=== PATIENT | male | born 1955 | race Caucasian/White ===

== ENCOUNTER → 2018-05-24 | Outpatient (CLI) | payer OTHER, SELFPAY ==
--- NOTE | 2018-05-24 06:42 | MRI_ITS ---
STUDY: MRI LUMBAR SPINE WITHOUT CONTRAST REASON FOR EXAM: Male, 62 years old. Low back pain radiating to the left hip for 3 weeks TECHNIQUE: Standardized fat and water weighted pulse sequences were obtained in the sagittal and axial planes. COMPARISON: None FINDINGS: T12-L1: Incompletely imaged bulging annulus. Grade 1 L4-5 anterolisthesis. There is no substantial scoliosis. Normal conus medullaris that terminates at the T12 level. Multiple Schmorl's nodes. L1-2: Bulging annulus with mild central canal and bilateral foraminal stenoses. L2-3: Bulging annulus with mild central canal stenosis. L3-4: Bulging annulus and bilateral facet hypertrophy with mild bilateral foraminal stenoses. L4-5: Bulging annulus and bilateral facet hypertrophy. Moderate bilateral foraminal stenoses. L5-S1: Bulging annulus, broad central disc protrusion, and bilateral facet hypertrophy with mild left foraminal stenosis. Normal visualized sacral ala. Normal visualized paraspinous soft tissue structures. MRI/Spine Lumbar (Routine) IMPRESSION: Grade 1 L4-5 anterolisthesis. Multilevel degenerative disease as described. Moderate bilateral foraminal stenoses at L4-5. Electronically Signed: Carlos Seals MD at 8:39 EDT Tel , Service support ,
== END | disposition home or self-care (01) ==
PROVIDERS: Family Provider Family Medicine; PCP Family Medicine
DX: M54.16 Radiculopathy, lumbar region (principal); M43.16 Spondylolisthesis, lumbar region
CPT/HCPCS: 72148

== ENCOUNTER → 2020-04-05 09:24 | Outpatient (CLI) | payer OTHER, SELFPAY ==
[2020-04-05 12:49] LABS: Absolute Lymphocyte Count 0.99 X10^3/uL (0.83-4.51); Absolute Neutrophil Count 2.7 X10^3/uL (2.0-7.7); Basophil# 0.05 X10^3/uL; Basophil% 1.1 % (0-1); Eosinophil# 0.38 X10^3/uL; Eosinophils% 8.5 % (0-5); Hematocrit 43.8 % (40-54); Hemoglobin 14.8 g/dL (13.0-16.5); Lymphocyte # 0.99 X10^3/ul (4.0); Mean Corp Hgb Conc 33.8 g/dL (32-36); Mean Corpuscular Hgb 30.9 pg (27.0-32.0); Mean Corpuscular Volume 91.4 fL (80-94); Mean Platelet Vol. 9.7 fl (6.2-12.0); Monocyte# 0.36 X10^3/uL; NRBC Flagged by Analyzer 0 % (0-5); Neutrophil # 2.69 X10^3/uL (2.7-7.7); Platelet Count 212 K/mm3 (150-450); RBC Distribution Width CV 11.9 % (11.6-14.6); RBC Distribution Width SD 40.6 fl (35.1-43.9); Red Blood Count 4.79 M/mm3 (4.6-6.2); White Blood Count 4.5 K/mm3 (4.4-11.0)
[2020-04-05 13:41] LABS: ALB/GLOB Ratio 0.9 RATIO (0.9-2.4); AST(SGOT) 17 U/L (15-37); Alanine Aminotransfer ALT/SGPT 38 U/L (16-61); Albumin, Serum 3.7 g/dL (3.2-5.0); Alkaline Phosphatase 72 U/L (45-117); Anion Gap 8 (5-15); BUN 11 mg/dL (7-18); BUN/Creat Ratio 15.3 RATIO (10-20); Calcium,Total 8.7 mg/dL (8.5-10.1); Chloride 105 mmol/L (98-107); Cholesterol 242 mg/dL (200); Creatinine, Serum 0.72 mg/dL (0.70-1.30); EST Glomerular Filtration Rate 116 mL/min (>60); Est Glom Filt Rate - Afr Amer 141 mL/min (>60); Globulin 3.9 g/dL (2.2-4.2); Glucose 87 mg/dL (74-106); High Density Lipoprotein 66 mg/dL; Potassium 3.6 mmol/L (3.5-5.1); Protein, Total 7.6 g/dL (6.4-8.2); Sodium Level 139 mmol/L (136-145); Thyroid Stim Hormone (TSH) 1.74 uIU/mL (0.358-3.74); Triglycerides 60 mg/dL; Very Low Density Lipoprotein 12 mg/dL (5-40)
== END ==
PROVIDERS: PCP Family Medicine; Visit Provider Family Medicine
DX: I10 Essential (primary) hypertension (principal)
CPT/HCPCS: 36415; 80053; 80061; 84443; 85025

== ENCOUNTER → 2022-04-24 | Outpatient (CLI) | payer MEDICARE, SELFPAY ==
[2022-04-24 10:08] LABS: Absolute Lymphocyte Count 1.49 X10^3/uL (0.83-4.51); Absolute Neutrophil Count 2.9 X10^3/uL (2.0-7.7); Basophil# 0.05 X10^3/uL; Basophil% 0.9 % (0-1); Eosinophils% 7.5 % (0-5); Hematocrit 43.6 % (40-54); Hemoglobin 15.3 g/dL (13.0-16.5); Lymphocyte # 1.49 X10^3/ul (0.83-4.51); Lymphocyte % 27.8 % (19-41); Mean Corp Hgb Conc 35.1 g/dL (32-36); Mean Corpuscular Hgb 32.1 pg (27.0-32.0); Mean Corpuscular Volume 91.4 fL (80-94); Mean Platelet Vol. 9.4 fl (6.2-12.0); Monocyte# 0.51 X10^3/uL; Monocyte% 9.5 % (0-10); NRBC Flagged by Analyzer 0 % (0-5); Neutrophil # 2.89 X10^3/uL (2.7-7.7); Neutrophil % 53.9 % (47-70); Platelet Count 187 K/mm3 (150-450); RBC Distribution Width CV 12.6 % (11.6-14.6); RBC Distribution Width SD 41.8 fl (35.1-43.9); Red Blood Count 4.77 M/mm3 (4.6-6.2); White Blood Count 5.4 K/mm3 (4.4-11.0)
[2022-04-24 10:36] LABS: Vitamin D,25 Hydroxy 55.3 ng/mL
[2022-04-24 10:55] LABS: ALB/GLOB Ratio 0.9 RATIO (0.9-2.4); AST(SGOT) 18 U/L (15-37); Alanine Aminotransfer ALT/SGPT 33 U/L (16-61); Albumin, Serum 3.7 g/dL (3.2-5.0); Alkaline Phosphatase 71 U/L (45-117); Anion Gap 6 (5-15); BUN 15 mg/dL (7-18); BUN/Creat Ratio 18.1 RATIO (10-20); Calcium,Total 9.1 mg/dL (8.5-10.1); Chloride 107 mmol/L (98-107); Cholesterol 245 mg/dL (200); Creatinine, Serum 0.83 mg/dL (0.70-1.30); EST Glomerular Filtration Rate 98 mL/min (>60); Est Glom Filt Rate - Afr Amer 119 mL/min (>60); Globulin 3.9 g/dL (2.2-4.2); Glucose 104 mg/dL (74-106); High Density Lipoprotein 60 mg/dL; PSA,Total - Annual Screen 0.34 ng/mL (0.00-4.00); Potassium 3.9 mmol/L (3.5-5.1); Protein, Total 7.6 g/dL (6.4-8.2); Sodium Level 140 mmol/L (136-145); Thyroid Stim Hormone (TSH) 2.58 uIU/mL (0.358-3.74); Triglycerides 93 mg/dL; Very Low Density Lipoprotein 19 mg/dL (5-40)
== END | disposition home or self-care (01) ==
PROVIDERS: PCP Internal Medicine; Referring Provider Internal Medicine; Visit Provider Internal Medicine
DX: E55.9 Vitamin D deficiency, unspecified (principal); I10 Essential (primary) hypertension; Z12.5 Encounter for screening for malignant neoplasm of prostate; Z13.220 Encounter for screening for lipoid disorders
CPT/HCPCS: 36415; 80053; 80061; 82306; 84153; 84443; 85025; G0103

== ENCOUNTER 2022-05-29 08:37 | Day surgery (SDC) | payer MEDICARE, SELFPAY ==
[2022-05-29 09:02] VITALS: BP 147/72; PULSE 74; RESP 16; TEMP 36.8; O2SAT 97; BMI 28.1
[2022-05-29] MEDS: Lactated Ringers 1,000 ML 15 ML IV (09:07)
--- NOTE | 2022-05-29 09:15 | PCM.HP.BLA ---
History and Physical Date of Admission: 05/29/22 Visit Reasons:?COLONOSCOPY- RECTAL LECKAGE Chief Complaint: c-scope Exhibition Specialist Required: No Is patient in pain?: No Allergies No Known Allergies Allergy (Unverified 05/05/22 08:46) Medications multivitamin PO 1XD 10/13/21 [History Confirmed 05/05/22] nasacort NASAL 1XD PRN 10/13/21 [History Confirmed 05/05/22] super beta prostrate advanced PO 1XD 10/13/21 [History Confirmed 05/05/22] vitamin D3 Liquid PO 1XD 10/13/21 [History Confirmed 05/05/22] zinc PO 1XD 10/13/21 [History Confirmed 05/05/22] amlodipine 10 mg tablet 10 mg PO DAILY #90 tabs 04/13/22 [Rx Confirmed 05/05/22] PFSH Medical History? Back problem Seasonal allergies Surgical History? Previous back surgery Family History? Father DiabetesBrother Diabetes Thyroid disorderSister Thyroid disorder Social History? adopted:? No household members:? spouse housing:? house current occupational status:? retired sexually active:? Yes Smoking Status:? Never smoker alcohol intake:? never substance use type:? does not use diet:? low carbohydrate well-balanced diet:? daily or most days caffeine:? Yes eating out:? rarely or never during the past year weight has:? remained stable what type of physical activity do you participate in:? walking michael/advent:? Rastafari seatbelt use:? always do you feel safe at home:? Yes HPI HPI HPI: 66-year-old gentleman is referred by Dr. Latanya Wahl for surgical consultation regarding fecal leakage.? Written compromise surgical consult recommendations will return to him.? Apparently the patient noticed this subsequent to a back surgical procedure.? Denies any pain.? No bleeding.? He has never had a colonoscopy.? By report the patient has been trying to do some Kegel exercises.? It is felt pertinent that he pursue a colonoscopy. The patient thinks that he had back surgery 4 years ago and that maybe the symptoms started then.? He has been having recent more problems with back aching pain.? He has not gone back to [facility] he has been seen by chiropractor who apparently took some plain x-rays showing some further degenerative disease. The patient does not note any bright red blood per rectum or melena.? He states he has had some hemorrhoid problems in the past but does not notice any recently. He will typically have a bowel movement in the morning.? Then within 2 hours sometimes he notices fecal leakage sometimes he does not sense it but it is there.? But then the rest the day he will be relatively okay. No abdominal pain.? No unexpected weight loss. ROS General General: No weight change, appetite, fatigue, colon cancer, breast cancer or weakness HEENT HEENT: No difficulty swallowing, eye injury, eye surgery, swollen glands or hoarseness Endo Endocrine: No thyroid disease, diabetes mellitus, thyroid cancer, Hair loss, heat intolerance or cold intolerance Skin Skin: No rash or changing moles Breast Breast: No left breast lump, right breast lump, nipple discharge, breast pain, abnormal mammogram, abnormal US or breast enlargement Musc Musculoskeletal: Yes back problems; No arthritis, rheumatoid arthritis, gout or joint pain Cardio Cardiovascular: Yes high blood pressure; No murmur, pacemaker, heart disease, atrial fibrillation, heart attack, heart stent, palpitations, shortness of breat with exertion or chest pain Psych Psychiatric: No depression, anxiety or hearing voices Resp Respiratory: No shortness of breath, No sleep apnea, No cough, No COPD, No asthma, No emphysema and No wheezing Gastro Gastrointestinal: No abdominal pain, No nausea or vomiting, No diarrhea, No constipation, No blood in stool, No acid reflux, No hemorrhoids, No ulcers, No gallbladder problem and No black,tarry stools Rya Hematologic: No blood thinners, No blood disorders, No bleeding, No anemia and No blood clots Neuro Neurologic: No system reviewed and no additional complaints, except as documented, No as per HPI, No abnormal gait, No abnormal hearing, No abnormal movements, No abnormal speech, No behavioral changes, No burning sensations, No confusion, No convulsions, No disequilibrium, No dizziness, No localized weakness, No frequent falls, No headache(s), No lack of coordination, No loss of vision, No memory loss, Yes numbness, No other visual disturbances, No radicular pain, No restless legs, No sensory deficit, No syncope, Yes tingling, No tremor(s), No weakness and No other Exam Const General: cooperative, healthy appearing, comfortable and no acute distress [facility] Head: normal to inspection Eyes General: appearance normal, both eyes and all related structures Neck Neck: normal visual inspection Chest Chest palpation & inspection: normal inspection of the chest Resp Effort & Inspection: normal respiratory effort Auscultation: clear to auscultation bilaterally Cardio Rate: regular rate Rhythm: regular rhythm GI Palpation: soft and no hepatosplenomegaly Musc Cervical Spine: normal cervical lordosis Skin General: no rashes or lesions noted Neuro General: patient alert, patient awake and patient oriented x3 Psych Appearance: grossly normal Assessment and Plan Assessment and Plan (1) Rectal leakage: ?Status:?Acute Plan I recommended the patient a colonoscopy with possible biopsy or polypectomy as indicated.? Careful inspection of the anal rectal area will be pursued at that time. I had additional discussion with the patient that I thought it might be worth his while to get back in touch with his [facility] surgeon to assisted him with his back for reevaluation to see if there is any evidence of further spinal compression that might be contributing to his fecal incontinence sphincter muscles.? This would be particularly in light that the patient apparently is complaining of newer onset of progressive back problems. He has had an opportunity to ask and have questions answered.? We will schedule him proceed with his care. It is of note that his also is scheduled to have a colonoscopy as well. I appreciate the opportunity of assisting with the surgical care Copy: Dr. Latanya Hood M.D., F.A.C.S I have examined the patient and the H&P has been reviewed. There are no clinical changes since date of exam. Boni Hood M.D., F.A.C.S.
--- NOTE | 2022-05-29 10:17 | OP.COLON_ITS ---
Patient Name: Abdulkadir Lopez Procedure Date: 05/29/2022 9:48 AM Date of : 1955 Age: 66 Procedure: Colonoscopy Indications: Screening for colorectal malignant neoplasm Providers: Boni Hood MD Medicines: See the Anesthesia note for documentation of the administered medications Patient Profile: Last Colonoscopy: none. The patient's first colonoscopy is today. Complications: No immediate complications. Procedure: Pre-Anesthesia Assessment: - Prior to the procedure, a History and Physical was performed, and patient medications and allergies were reviewed. The patient's tolerance of previous anesthesia was also reviewed. The risks and benefits of the procedure and the sedation options and risks were discussed with the patient. All questions were answered, and informed consent was obtained. Prior Anticoagulants: The patient has taken no previous anticoagulant or antiplatelet agents. ASA Grade Assessment: II - A patient with mild systemic disease. After reviewing the risks and benefits, the patient was deemed in satisfactory condition to undergo the procedure. After I obtained informed consent, the scope was passed under direct vision. Throughout the procedure, the patient's blood pressure, pulse, and oxygen saturations were monitored continuously. The colonoscope was introduced through the anus and advanced to the cecum, identified by appendiceal orifice and ileocecal valve. The colonoscopy was performed without difficulty. The patient tolerated the procedure well. The quality of the bowel preparation was good. The ileocecal valve was photographed. Scope In: 9:56:22 AM Scope Withdrawal Time 0 hours 6 minutes 59 seconds Scope Out: 10:10:47 AM Total Procedure Duration Time 0 hours 14 minutes 25 seconds Findings: The digital rectal exam findings include decreased sphincter tone. Pertinent negatives include normal prostate (size, shape, and consistency). Scattered diverticula were found in the sigmoid colon. The exam was otherwise without abnormality. Impression: - Decreased sphincter tone found on digital rectal exam. This appears to be a significant abnormality. This is likely the cause of the patient's fecal incontinence. 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 - Diverticulosis in the sigmoid colon. - The examination was otherwise normal. - No specimens collected. Recommendation: - Discharge patient to home. - Resume previous diet. - Continue present medications. - Repeat colonoscopy is not recommended due to current age (66 years or older) for screening purposes. - Telephone my office to a referral to colorectal surgery specialty if desired Procedure Code(s): --- Professional --- 47993, Colonoscopy, flexible; diagnostic, including collection of specimen(s) by brushing or washing, when performed (separate procedure) Diagnosis Code(s): --- Professional --- Z12.11, Encounter for screening for malignant neoplasm of colon K62.89, Other specified diseases of anus and rectum K57.30, Diverticulosis of large intestine without perforation or abscess without bleeding CPT copyright 2017 [employer]. All rights reserved. The codes documented in this report are preliminary and upon equipment service associate review may be revised to meet current compliance requirements. Boni Hood MD 05/29/2022 10:16:47 AM This report has been signed electronically. Number of Addenda: 0 Note Initiated On: 05/29/2022 9:48 AM
--- NOTE | 2022-05-29 10:18 | OP.CCLET_ITS ---
05/29/2022 Latanya Wahl [facility] [address] [place] [address] Re : Colonoscopy procedure for Abdulkadir Brizuelaryann Dear Dr. Wahl This procedure was performed on Sunday, May 29, 2022. My impressions and recommendations are as follows: Impressions : - Decreased sphincter tone found on digital rectal exam. This appears to be a significant abnormality. This is likely the cause of the patient's fecal incontinence. 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 - Diverticulosis in the sigmoid colon. - The examination was otherwise normal. - No specimens collected. Recommendations : - Discharge patient to home. - Resume previous diet. - Continue present medications. - Repeat colonoscopy is not recommended due to current age (66 years or older) for screening purposes. - Telephone my office to a referral to colorectal surgery specialty if desired My findings are described in the full procedure note, which is enclosed. If I can be of further assistance, please feel free to contact me at Doctor phone number(s): Work: . Sincerely, Boni Hood MD 05/29/2022 10:16:47 AM This report has been signed electronically.
[2022-05-29 10:20] VITALS: BP 100/65; BP 100/68; BP 147/72; PULSE 63; PULSE 67; RESP 16; TEMP 36.2; O2SAT 93; O2SAT 94
[2022-05-29 10:25] VITALS: BP 105/65; BP 147/72; PULSE 63; RESP 16; O2SAT 93
[2022-05-29 10:30] VITALS: BP 109/72; BP 147/72; PULSE 93; RESP 16; O2SAT 93
[2022-05-29 10:35] VITALS: BP 107/72; BP 147/72; PULSE 62; RESP 16; TEMP 36.6; O2SAT 93
[2022-05-29 10:51] VITALS: BP 147/72
== END 2022-05-29 10:59 | disposition home or self-care (01) ==
LOC: EN 08:43 → AC 08:43
PROVIDERS: PCP Internal Medicine; Referring Provider Internal Medicine; Visit Provider Surgery
PROC: 0DJD8ZZ Inspection of Lower Intestinal Tract, Via Natural or Artificial Opening Endoscopic (ICD-10-PCS; CPT 45378; principal; 2022-05-29 09:40)
DX: Z12.11 Encounter for screening for malignant neoplasm of colon (principal); K57.30 Diverticulosis of large intestine without perforation or abscess without bleeding; I10 Essential (primary) hypertension; Z79.899 Other long term (current) drug therapy
CPT/HCPCS: 45378; J7120; J2405

== ENCOUNTER → 2022-11-29 | Outpatient (CLI) | payer MEDICARE, SELFPAY ==
[2022-11-29 11:43] LABS: Anion Gap 7 (5-15); BUN 15 mg/dL (7-18); BUN/Creat Ratio 15.5 RATIO (10-20); Calcium,Total 8.9 mg/dL (8.5-10.1); Chloride 107 mmol/L (98-107); Creatinine, Serum 0.97 mg/dL (0.70-1.30); EST Glomerular Filtration Rate 82 mL/min (>60); Est Glom Filt Rate - Afr Amer 99 mL/min (>60); Glucose 116 mg/dL (74-106); Magnesium 2.4 mg/dL (1.6-2.6); Potassium 4.1 mmol/L (3.5-5.1); Sodium Level 138 mmol/L (136-145)
== END | disposition home or self-care (01) ==
LOC: LAB 10:19
PROVIDERS: PCP Internal Medicine; Visit Provider Internal Medicine
DX: I10 Essential (primary) hypertension (principal)
CPT/HCPCS: 36415; 80048; 83735

== ENCOUNTER → 2024-07-16 | Outpatient (CLI) | payer MEDICARE, SELFPAY ==
[2024-07-16 12:31] LABS: Absolute Lymphocyte Count 1.38 X10^3/uL (0.83-4.51); Basophil# 0.06 X10^3/uL; Basophil% 1.4 % (0-1); Eosinophil# 0.51 X10^3/uL; Eosinophils% 11.8 % (0-5); Hematocrit 39.5 % (40-54); Hemoglobin 13.8 g/dL (13.0-16.5); Lymphocyte # 1.38 X10^3/ul (0.83-4.51); Mean Corp Hgb Conc 34.9 g/dL (32-36); Mean Corpuscular Hgb 32.2 pg (27.0-32.0); Mean Corpuscular Volume 92.1 fL (80-94); Mean Platelet Vol. 9.9 fl (6.2-12.0); Monocyte# 0.38 X10^3/uL; Monocyte% 8.8 % (0-10); NRBC Flagged by Analyzer 0 % (0-5); Neutrophil # 1.97 X10^3/uL (2.7-7.7); Neutrophil % 45.8 % (47-70); Platelet Count 207 K/mm3 (150-450); RBC Distribution Width SD 43.8 fl (35.1-43.9); Red Blood Count 4.29 M/mm3 (4.6-6.2); White Blood Count 4.3 K/mm3 (4.4-11.0)
[2024-07-16 12:54] LABS: Hemoglobin A1c 5.7 % (<=5.6)
[2024-07-16 13:05] LABS: ALB/GLOB Ratio 1.1 RATIO (0.9-2.4); AST(SGOT) 27 U/L (<=37); Alanine Aminotransfer ALT/SGPT 35 U/L (<=46); Albumin, Serum 3.8 g/dL (3.4-4.8); Alkaline Phosphatase 52 U/L (40-129); Anion Gap 13 (5-15); BUN 14 mg/dL (4-19); BUN/Creat Ratio 13.5 RATIO (10-20); Calcium,Total 9.1 mg/dL (7.6-11.0); Carbon Dioxide 21.7 mmol/L (21.0-32.0); Chloride 104 mmol/L (98-108); Cholesterol 269 mg/dL (<=200); Creatinine, Serum 1.04 mg/dL (0.70-1.20); EST Glomerular Filtration Rate 78 (>60); Globulin 3.5 g/dL (2.2-4.2); Glucose 97 mg/dL (70-99); High Density Lipoprotein 46 mg/dL; Low Density Lipoprotein Calc. 200 mg/dL; Magnesium 2.2 mg/dL (1.5-2.2); PSA,Total - Annual Screen 0.37 ng/mL (0.02-4.00); Potassium 4.2 mmol/L (3.3-5.1); Protein, Total 7.2 g/dL (5.9-8.4); Sodium Level 139 mmol/L (133-145); Total Bilirubin 0.58 mg/dL (0.00-1.30); Triglycerides 115 mg/dL; Very Low Density Lipoprotein 23 mg/dL (5-40); Vitamin B12 723 pg/mL (180-914); Vitamin D,25 Hydroxy 62.9 ng/mL (30-100); cholesterol:hdl ratio screen 5.85
== END | disposition home or self-care (01) ==
LOC: BIMLAB 08:15
PROVIDERS: PCP Internal Medicine; Referring Provider Internal Medicine; Visit Provider Internal Medicine
DX: I10 Essential (primary) hypertension (principal); E53.8 Deficiency of other specified B group vitamins; E55.9 Vitamin D deficiency, unspecified; R73.9 Hyperglycemia, unspecified; Z13.220 Encounter for screening for lipoid disorders; Z12.5 Encounter for screening for malignant neoplasm of prostate
CPT/HCPCS: 36415; 80053; 80061; 82306; 82607; 83036; 83735; 84153; 84443; 85025; G0103